=== PATIENT | male | born 1960 | race Caucasian/White ===

== ENCOUNTER 2016-11-12 07:35 | Day surgery (SDC) | payer OTHER ==
[~2016-11-12] VITALS: Ht 177.8 cm; Wt 90.5 kg
[~2016-11-12 07:35] MED LIST: 0.9% Sodium Chloride 1,000 ML IV SCH; CIPR-231 PO; HYDR-4003 PO; LANS15TA3 PO; Sodium Chloride LOK Flush 10 mL Syringe IV PRN; TAMS0.4C98 PO; fentaNYL-PF 50 mCg/mL 2 mL Inj IVPUSH PRN
[2016-11-12 08:08] VITALS: BP 125/80; PULSE 67; RESP 17; O2SAT 92
[2016-11-12 08:52] VITALS: BP 106/78; PULSE 64; RESP 16; O2SAT 95
[2016-11-12 09:02] VITALS: BP 105/70; PULSE 58; RESP 16; O2SAT 93
--- NOTE | 2016-11-12 09:25 | ENDO ---
[address] [address] ENDOSCOPY PROCEDURE PATIENT: SARAH BERG : 1960 MR#: [id number] ADMIT: 11/12/2016 JOB ID: [id number] DATE: 11/12/2016 TYPE OF OPERATION: Colonoscopy. PREOPERATIVE DIAGNOSIS(ES): Colorectal cancer screening and left flank pain. POSTOPERATIVE DIAGNOSIS(ES): Normal colonoscopy. ANESTHESIA: 1. Fentanyl 75 mcg. 2. Versed 4 mg IV administered. COMPLICATION: None. BLOOD LOSS: Minimal. DESCRIPTION OF PROCEDURE: After the risks and benefits were explained to the patient, informed consent was obtained. After anesthesia administered, colonoscope was then inserted from the rectum to the terminal ileum. Mucosa carefully examined. Prep of the patient was excellent. After procedure was done, the scope was withdrawn and procedure terminated. FINDINGS: Upon inspection of the anus, no masses, hemorrhoids, ulcers, fissures that were seen. Throughout the entire examination, there were no polyps, masses or lesions. Retroflexion was normal. IMPRESSIONS: Normal colonoscopy. RECOMMENDATIONS: Repeat colonoscopy 10 years for colorectal cancer screening. Followup with [facility] as an outpatient.
== END 2016-11-12 23:59 | disposition home or self-care (01) ==
LOC: END 07:35
PROVIDERS: ATTEND Internal Medicine Gastroenterology
DX: Z12.11 Encounter for screening for malignant neoplasm of colon (principal); K21.9 Gastro-esophageal reflux disease without esophagitis; M54.5 Low back pain; G43.909 Migraine, unspecified, not intractable, without status migrainosus
CPT/HCPCS: G0121; G0500; J7030